=== PATIENT | female | born 1980 | race Caucasian/White ===

== ENCOUNTER → 2019-11-18 | Outpatient (CLI) | payer OTHER ==
[~2019-11-18] VITALS: Ht 171.4 cm; Wt 153.5 kg
[~2019-11-18] MED LIST: ALBUTEROL1.25 MG/3 IH; BYDUREON PEN2 MG SQ; CELEBREX 200MG200 MG PO; PROAIR HFA0.09 MG/AC IH; WELLBUTRIN SR100 M1 PO
[2019-11-18 16:14] VITALS: BP 134/84; PULSE 68
== END ==
LOC: LIGHT 09:29
DX: E66.01 Morbid (severe) obesity due to excess calories (principal); Z68.43 Body mass index [BMI] 50.0-59.9, adult; E11.9 Type 2 diabetes mellitus without complications
CPT/HCPCS: G0463

== ENCOUNTER → 2019-12-03 | Outpatient (CLI) | payer OTHER | LOC: LIGHT 10:45 | DX: E66.01 Morbid (severe) obesity due to excess calories (principal) | CPT/HCPCS: G0463 ==

== ENCOUNTER → 2019-12-04 | Outpatient (CLI) | payer OTHER | LOC: LIGHT 09:03 ==

== ENCOUNTER → 2019-12-17 | Outpatient (CLI) | payer OTHER | LOC: BHSO 09:08 ==

== ENCOUNTER → 2019-12-17 | Outpatient (CLI) | payer OTHER ==
[~2019-12-17] VITALS: Ht 171.4 cm; Wt 154.7 kg
[2019-12-17 16:04] VITALS: BP 134/70; PULSE 88
== END ==
LOC: LIGHT 08:55
DX: E66.01 Morbid (severe) obesity due to excess calories (principal); Z68.43 Body mass index [BMI] 50.0-59.9, adult; E11.9 Type 2 diabetes mellitus without complications
CPT/HCPCS: G0463

== ENCOUNTER 2020-01-22 11:07 | Inpatient (IN) | payer OTHER ==
[~2020-01-22] VITALS: Ht 170.2 cm; Wt 150.2 kg
[2020-02-04] MEDS ORDERED: GLUCOPHAGE XR500 M1 PO (17:59)
[2020-02-04] MEDS ORDERED: SINGULAIR 110 MG/TAB PO (17:59)
[2020-02-05] VITALS (11 sets, daily range): BP systolic 136–171; BP diastolic 81–190; PULSE 63–92; TEMP 97.6–98.3
[2020-02-05] MEDS ORDERED: GLUCOPHAGE500 MG/TAB PO (08:21)
[2020-02-05] MEDS ORDERED: WELLBUTRIN SR150 M1 PO (08:22)
--- NOTE | 2020-02-05 17:36 | NUR ---
Patient resting in bed. She has had nausea/dry heeves with any movement. Zofran per orders. Patient has been up to the bathroom & voided x2. Blue Gatorade at bedside table, minimal interest. Scds ble. Mike drain to compression. Lap site bandaids intact. Vss. Encouraged rest. Will monitor.
--- NOTE | 2020-02-05 19:30 | NUR ---
RECEIVED CHANGE OF SHIFT REPORT FROM DAY SHIFT NURSE. PATIENT WITH NO C/O DURING REPORT.
--- NOTE | 2020-02-05 19:30 | NUR ---
PATIENT FEELING MUCH BETTER, MORE AWAKE. FACETIMING HER FAMILY. PAIN IS INCREASING, DILAUDID PER ORDERS. SHE IS SIPPING ON HER BLUE GATORADE.
--- NOTE | 2020-02-05 20:00 | NUR ---
PATIENT RESTING IN BED WITH NO FURTHER NEEDS OR CONCERNS.
[2020-02-06 00:32] VITALS: BP 152/85; PULSE 70; TEMP 98.1
--- NOTE | 2020-02-06 00:46 | NUR ---
PATIENT BACK IN BED FROM CHAIR. VOIDS WITH NO PROBLEMS. CONTINUES USE OF HEATING PAD FOR C/O INTERMITTENT SHOULDER PAIN FROM LAPARASCOPIC SURGERY. SEE eMAR FOR TYLENOL GIVEN. IVF INFUSING WITH NO PROBLEMS. DENIES NAUSEA. TOLERATING SIPS OF GATORADE AND ICE CHIPS.
[2020-02-06 05:10] VITALS: BP 153/75; PULSE 68; TEMP 97.9
--- NOTE | 2020-02-06 07:23 | NUR ---
CHANGE OF SHIFT REPORT GIVEN TO DAY SHIFT NURSEYAMILET. IVF INFUSING WITH NO PROBLEMS.
[2020-02-06 08:01] VITALS: BP 147/76; PULSE 84; TEMP 97.5
--- NOTE | 2020-02-06 08:13 | NUR ---
PSYCH THERAPIST NOTIFIED THIS NURSE THAT THE PATIENT IS FEELING NAUSEATED. PATIENT GIVEN PRN DOSE OF IV ZOFRAN PRIOR TO GOING DOWN FOR GASTRGAFFIN STUDY. PATIENT TAKEN VIA WHEELCHAIR. WILL WAIT FOR PATIENT ARRIVAL BACK TO ROOM 324.
--- NOTE | 2020-02-06 09:23 | NUR ---
PATIENT CONTINUES TO FEEL NAUSEATED AND HAVING DRY HEAVES POST RADIOLOGY STUDY THIS MORNING. SHIFT ASSESSMENT COMPLETED. ABDOMINAL LAP SITES X4 DRESSED WITH BANDAIDS AND ARE CD&I. LEFT-SIDED ABDOMINAL ADRIAN DRAIN TO BULB SUCTION WITH SMALL AMOUNTS OF BRIGHT RED DRAINAGE PRESENT IN BULB. PATIENT REPORTS HER PAIN INTERMITTENT THAT IMPROVES WITH MOVEMENT AND IS WORSE WITH REST. PAIN IS LOCATED IN THE LEFT SIDE OF THE ABDOMEN AND THE SHOULDERS. K-PAD IN PLACE. CALL LIGHT WITHIN REACH. CALLED AND NOTIFED OF NAUSEA AND DRY HEAVES THAT HAVE NOT IMPROVED WITH THE IV ZOFRAN. PHENERGAN 12.5MG IV Q6H PRN ALTERNATE WITH ZOFRAN TORB FROM TO THIS NURSE.
--- NOTE | 2020-02-06 10:06 | NUR ---
Initial visit; Patient thanked Spa Assistant Manager for looking in on her and offering God's blessings.
[2020-02-06 11:22] VITALS: BP 155/81; PULSE 67; TEMP 98
[2020-02-06 16:15] VITALS: BP 162/90; PULSE 79; TEMP 98.4
[2020-02-06] MEDS ORDERED: ULTRAM 50MG TAB50 MG PO (16:53)
[2020-02-06] MEDS ORDERED: ZOFRAN 4MG T4 MG/TAB PO (16:54)
--- NOTE | 2020-02-06 17:02 | NUR ---
PATIENT GIVEN PRN PO ULTRAM PRIOR TO DISCHARGE AT THIS TIME. PATIENTS RIGHT AC IV DISCONTINUED PER PENDING DISCHARGE. TIP INTACT. PATIENT TOLERATED WELL.
--- NOTE | 2020-02-06 17:43 | NUR ---
PATIENT NAUSEA AND DRY HEAVES HAVE IMPROVED. PATIENT READY TO DISCHARGE. INSTRUCTIONS REVIEWED WITH PATIENT. QUESTIONS SOUGHT AND ANSWERED. PATIENT PERSONAL BELONGINGS GATHERED. PATIENT TAKEN TO PERSONAL VEHICLE VIA WHEELCHAIR BY SURGICAL STAFF. PATIENT DISCHARGED.
== END 2020-02-06 17:43 | disposition home or self-care (01) | DRG 621 ==
LOC: INPTSU 02-05 06:50 → SURG 02-05 09:00
PROVIDERS: ADMIT Surgery
PROC: 0DB64Z3 Excision of Stomach, Percutaneous Endoscopic Approach, Vertical (ICD-10-PCS; principal; 2020-02-05 09:00)
DX: E66.01 Morbid (severe) obesity due to excess calories (principal); Z68.43 Body mass index [BMI] 50.0-59.9, adult
CPT/HCPCS: J0330; J1170; J2405; J2550; J2704; J3010; J7030; J7120

== ENCOUNTER → 2020-02-04 | Outpatient (CLI) | payer OTHER ==
[~2020-02-04] MED LIST changes: +GLUCOPHAGE XR500 M1 PO; +GLUCOPHAGE500 MG/TAB PO; +SINGULAIR 110 MG/TAB PO; +ULTRAM 50MG TAB50 MG PO; +WELLBUTRIN SR150 M1 PO; +ZOFRAN 4MG T4 MG/TAB PO
== END ==
LOC: LIGHT 01-21 15:36